=== PATIENT | female | born 1980 | race Two or more races ===

== ENCOUNTER 2017-04-19 20:21 | Emergency (ER) | payer MEDICAID, OTHER, SELFPAY ==
[~2017-04-19] VITALS: Ht 154.9 cm; Wt 60.5 kg
[2017-04-19 21:03] LABS: PATH.CAST-FLAG NOT PRESENT; SPERM-FLAG NOT PRESENT; SRC-FLAG NOT PRESENT; XTAL-FLAG NOT PRESENT; YLC-FLAG NOT PRESENT
[2017-04-19 21:29] VITALS: BP 116/60
== END 2017-04-19 22:43 | disposition home or self-care (01) ==
LOC: ED 22:32
DX: O20.0 Threatened abortion (principal); Z3A.08 8 weeks gestation of pregnancy
CPT/HCPCS: 36415; 76801; 81001; 84702; 85025; 86901; 87086

== ENCOUNTER 2017-04-20 11:34 | Emergency (ER) | payer OTHER ==
[~2017-04-20] VITALS: Ht 154.9 cm; Wt 57.9 kg
[2017-04-20 12:15] VITALS: BP 113/67
[2017-04-20] MEDS ORDERED: SODIUM CHLORIDE 0.9% 1,000ML IVBOLUS ONE (13:00)
[2017-04-20] MEDS ORDERED: SODIUM CHLORIDE FLUSH 10ML SYR IVF ONE (13:00)
[2017-04-20 13:38] LABS: BLOOD UREA NITROGEN 9 mg/dL (7-18)
[2017-04-20 13:56] LABS: ASPARTATE AMINO TRANSFERASE 12 U/L (15-37)
== END 2017-04-20 14:39 | disposition home or self-care (01) ==
LOC: ED 14:33
DX: O03.9 Complete or unspecified spontaneous abortion without complication (principal)
CPT/HCPCS: 36415; 76801; 80053; 84702; 85025; 86901; 99285